=== PATIENT | male | born 1975 | race Caucasian/White ===

== ENCOUNTER 2016-12-06 09:01 | Emergency (ER) | payer OTHER ==
[~2016-12-06] VITALS: Ht 180.3 cm; Wt 124.7 kg
[~2016-12-06 09:01] MED LIST: FLEXERIL10 MG PO; IBUPROFEN800 MG PO
--- NOTE | 2016-12-06 09:38 | Urgent Treatment Center Report ---
History of Present Issue Date/Time Seen by Provider 12/06/16922 Visit Reason Pt arrived:Walked Presenting Problem:FOLLOW UP FOR WORK RELEASE Location if Accident: Onset of symptoms date/time:/ or onset unknown for:MEDICAL HX UNKNOWN Have you (or family members/close friends) recently traveled outside the [place]? N If Yes, where/when: Have you had exposure to infectious disease within the past month? TB? Other? Specify: Colby state that he was seen last week when he pulled a muscle in his lower back area States that he is feeling much better now Able to bend over without pain and not having to take any medication for the last few days. States that he feels like he is ready to go back to work. States that his job requires him to be seen before he can go back to work ALLERGIES Coded Allergies: No Known Allergies (12/01/16) Home Medications Active Scripts Cyclobenzaprine Hcl (Flexeril) 10 MG PO TID #18 TAB Prov: 12/01/16 Ibuprofen (Ibuprofen 800MG) 800 MG PO QIDP PRN pain #30 TAB Prov: 12/01/16 History Medical History General CAD? No Angina: No MD: No Hypertension? No Hyperlipidemia? No CHF? No DVT? No PE? No COPD? No Asthma? No Anemia? No GERD? No Gastric ulcers? No GI Bleed? No Hernia? No Thyroid Problems? No Hypothyroidism? No CVA? No Seizures? No Diabetes? No Renal Insuffiency? No UTI? No BPH? No GB Disease: No Nephritic Syndrome? No Asplenia? No Hepatitis? No Sickle Cell Disease? No Arthritis? No Migraines? No Cataracts? No Glaucoma? No Depression? No Cancer? No Site: N Immunization HX DT/Tetanus > 10 Years Ago Surgical Hx Previous Surgery?Y NECK SURGERY 2016 LT KNEE 1995 Social History Smoking Hx Smoker: Never Smoker Tobacco: No Alcohol Alcohol: No Review of Systems All Other Systems Reviewed and Negative Musculoskeletal other Comment Was seen last week when he pulled a muscle in his back at work and now here today to be seen to be released to go back to work Physical Exam Vital Signs Vital Signs Date Time Temp Pulse Resp B/P Pulse O2 O2 Flow FiO2 Ox Delivery Rate 12/06 913 97.8 74 20 140/90 98 General Appearance normal appearance, WD/WN, no apparent distress Respiratory Status Yes: trachea midline, chest symmetrical, non tender chest. No: respiratory distress. Cardiovascular normal exam, regular rate/rhythm, no peripheral edema, no gallop Back normal inspection, no CVA tenderness, no vertebral tenderness, gait normal, Patient physical completed able to bend, hop and move now without pain, no muscle tightness felt Patient state that he is having no pain at all now. 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 No Departure Departure Time of Disposition 0931 Disposition DC Home or Self Care(routine) Clinical Impression Primary Impression: Follow-up exam after treatment Condition STABLE Additional Instructions Patient cleared to return to work without limitations Follow up with family doctor for any further complaints Return if needed Discharge Counseling Counseled pt/family regarding diagnosis, home care, follow up needs Comments Patient cleared to return to work able to perform physical without pain or difficulty at 0936
[2016-12-06 09:42] VITALS: BP 140/90
--- OUTSIDE RECORDS SUMMARY | 2016-12-06 21:02 | External Medical Summary Rpt ---
Author Author BRADEN Address Unknown Phone [email or web address] Purpose Continuity of Care Document - through 2016
--- OUTSIDE RECORDS SUMMARY | 2016-12-06 21:02 | External Medical Summary Rpt ---
Demographics Preferred Language Canadian Marital Status Unknown Jew Affiliation Unknown Race Unknown Ethnic Group Unknown Author Author BRADEN Address Unknown Phone Immunization No patient found.
--- OUTSIDE RECORDS SUMMARY | 2016-12-06 21:02 | External Medical Summary Rpt ---
Demographics Preferred Language Bahamian Marital Status Unknown Anabaptist Affiliation Unknown Race Unknown Ethnic Group Unknown Author Author BRADEN Address Unknown Phone Immunization No patient found.
--- OUTSIDE RECORDS SUMMARY | 2016-12-06 21:02 | External Medical Summary Rpt ---
Author Author BRADEN Address Unknown Phone [email or web address] Purpose Continuity of Care Document - through 2016
== END 2016-12-06 09:46 | disposition home or self-care (01) ==
LOC: UTC 09:01
DX: Z09 Encounter for follow-up examination after completed treatment for conditions other than malignant neoplasm (principal); M54.40 Lumbago with sciatica, unspecified side

== ENCOUNTER 2017-02-10 15:46 | Emergency (ER) | payer OTHER ==
[~2017-02-10] VITALS: Ht 180.3 cm; Wt 122.5 kg
[2017-02-10] MEDS ORDERED: FLEXERIL10 MG PO (16:38)
[2017-02-10] MEDS ORDERED: IBUPROFEN800 MG PO (16:38)
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
[2017-02-10 16:51] VITALS: BP 149/103
--- OUTSIDE RECORDS SUMMARY | 2017-02-12 17:46 | External Medical Summary Rpt ---
Demographics Preferred Language Unknown Marital Status Unknown Quaker Affiliation Unknown Race Unknown Ethnic Group Unknown Author Author BRADEN Lott, BRADEN [employer] Address Unknown Phone Unavailable
--- OUTSIDE RECORDS SUMMARY | 2017-02-12 17:46 | External Medical Summary Rpt | CCD ---
Demographics Preferred Language Korean Marital Status Unknown Alevism Affiliation Unknown Race Unknown Ethnic Group Unknown Author Author , BRADEN FELICIANO Address Unknown Phone Immunization No patient found.
--- OUTSIDE RECORDS SUMMARY | 2017-02-12 17:46 | External Medical Summary Rpt | CCD ---
Demographics Preferred Language Thai Marital Status Unknown Latter Day Affiliation Unknown Race Unknown Ethnic Group Unknown Author Author , BRADEN FELICIANO Address Unknown Phone Immunization No patient found.
--- OUTSIDE RECORDS SUMMARY | 2017-02-12 17:46 | External Medical Summary Rpt | CCD ---
Demographics Preferred Language Guinean Marital Status Unknown Worship Affiliation Unknown Race Unknown Ethnic Group Unknown Author Author BRADEN Address Unknown Phone [email or web address] Purpose Continuity of Care Document - through 2016
--- OUTSIDE RECORDS SUMMARY | 2017-02-12 17:46 | External Medical Summary Rpt ---
Demographics Preferred Language Unknown Marital Status Unknown Bahai Affiliation Unknown Race Unknown Ethnic Group Unknown Author Author BRADEN Lott, [employer]EN [employer] Address Unknown Phone Unavailable
--- OUTSIDE RECORDS SUMMARY | 2017-02-12 17:46 | External Medical Summary Rpt | CCD ---
Demographics Preferred Language Czech Marital Status Unknown Gnosticism Affiliation Unknown Race Unknown Ethnic Group Unknown Author Author BRADEN Address Unknown Phone [email or web address] Purpose Continuity of Care Document - through 2016
== END 2017-02-10 16:56 | disposition home or self-care (01) ==
LOC: UTC 15:46
DX: M54.5 Low back pain (principal); M25.551 Pain in right hip; V89.2XXA Person injured in unspecified motor-vehicle accident, traffic, initial encounter; Y92.414 Local residential or business street as the place of occurrence of the external cause

== ENCOUNTER 2017-02-19 14:38 | Emergency (ER) | payer OTHER ==
[~2017-02-19] VITALS: Ht 180.3 cm; Wt 122.5 kg
--- OUTSIDE RECORDS SUMMARY | 2017-02-19 14:50 | External Medical Summary Rpt | CCD ---
Demographics Preferred Language Maltese Marital Status Unknown Latter-Day Affiliation Unknown Race Unknown Ethnic Group Unknown Author Author , BRADEN FELICIANO Address Unknown Phone Immunization No patient found.
--- OUTSIDE RECORDS SUMMARY | 2017-02-19 14:50 | External Medical Summary Rpt | CCD ---
Author Author BRADEN Address Unknown Phone [email or web address] Purpose Continuity of Care Document - through 2016
--- OUTSIDE RECORDS SUMMARY | 2017-02-19 14:50 | External Medical Summary Rpt | CCD ---
Demographics Preferred Language Slovak Marital Status Unknown Adventism Affiliation Unknown Race Unknown Ethnic Group Unknown Author Author , BRADEN FELICIANO Address Unknown Phone Immunization No patient found.
--- OUTSIDE RECORDS SUMMARY | 2017-02-19 14:50 | External Medical Summary Rpt | CCD ---
Author Author BRADEN Address Unknown Phone [email or web address] Purpose Continuity of Care Document - through 2016
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
[2017-02-19] MEDS ORDERED: NAPROSYN 500MG500 MG PO (16:02)
[2017-02-19 16:04] VITALS: BP 139/76
== END 2017-02-19 16:05 | disposition home or self-care (01) ==
LOC: UTC 14:38
DX: M54.41 Lumbago with sciatica, right side (principal); V43.02XA Car driver injured in collision with other type car in nontraffic accident, initial encounter; Y92.414 Local residential or business street as the place of occurrence of the external cause

== ENCOUNTER → 2017-02-24 | Outpatient (CLI) | payer BC ==
[~2017-02-24] MED LIST changes: +NAPROSYN 500MG500 MG PO
--- NOTE | 2017-02-24 16:09 | RADIOLOGY REPORT PS360 ---
US RUQ-(ABD LTD)1ORGAN/QUAD/FU HISTORY: GALLSTONES ORDERING PHYSICIAN: BELKIS MICHAEL MD PATIENT AGE: 41 years COMPARISON: None FINDINGS: PANCREAS:Unremarkable. No obvious mass or abnormal fluid collection. No ductal dilatation LIVER:No focal liver lesions demonstrated. Homogeneous echogenicity. No intrahepatic biliary ductal dilatation evident RIGHT KIDNEY:Unremarkable. Normal size and echogenicity. No hydronephrosis GALLBLADDER:Gallstones are present. Common bile duct is normal at 3 mm. No gallbladder wall thickening or pericholecystic fluid. IMPRESSION: Cholelithiasis
== END ==
LOC: RAD 09:09
DX: K80.00 Calculus of gallbladder with acute cholecystitis without obstruction (principal)